=== PATIENT | female | born 1970 | race African-American/Black ===

== ENCOUNTER 2023-09-09 09:49 | Outpatient (CLI) | payer BC | END 2023-09-09 09:50 | disposition home or self-care (01) | LOC: BICRAD 09:49 | PROVIDERS: ATTEND Nurse Practitioner Family | DX: M51.16 Intervertebral disc disorders with radiculopathy, lumbar region (principal); M47.26 Other spondylosis with radiculopathy, lumbar region | CPT/HCPCS: 72100 ==